=== PATIENT | male | born 1965 | race Caucasian/White ===

== ENCOUNTER → 2016-07-09 | Outpatient (CLI) | payer OTHER | END | disposition home or self-care (01) | LOC: PCVCIMAG 13:37 | PROVIDERS: ATTEND Internal Medicine Cardiovascular Disease | DX: E78.5 Hyperlipidemia, unspecified (principal); E78.00 Pure hypercholesterolemia, unspecified; R94.31 Abnormal electrocardiogram [ECG] [EKG]; R00.1 Bradycardia, unspecified | CPT/HCPCS: 80061; 93325; 93351; G0463 ==

== ENCOUNTER → 2019-02-13 | Outpatient (CLI) | payer OTHER ==
--- NOTE | 2019-02-17 16:33 | PCVCIMAG ---
APPROVED REPORT Study performed: 02/13/2019 12:39:06 Exam: Stress Echocardiogram Indication: elevated coronary calcium score, abn ekg, dyspnea Patient Location: Echo lab Stress Nurse: Aisha Arambula RN Status: routine Ht: 6 ft 0 in HR: 68 bpm BP: 126/84 mmHg Rhythm: NSR w/ 1st degree AV block Procedure The patient underwent an Exercise Stress Test using the Tyshawn Protocol. Blood pressure, heart rate, and EKG were monitored. An Echocardiogram was performed by liquified natural gas technician in four stages in quad fashion. At peak stress, four selected images were obtained and placed side by side with resting images for comparison. Stress Test Details Stress Test: Exercise stress testing was performed using a Tyshawn protocol. HR Resting HR: 70 bpmMax Heart Rate (APMHR): 165 bpm Max HR Achieved: 155 bpmTarget HR (85% APMHR): 140 bpm % of APMHR: 93 Recovery HR: 73 bpm HR response to stress: Normal HR response to stress BP Resting BP: 126/84 mmHg Max BP: 176/80 mmHg Recovery BP: 142/80 mmHg BP response to stress: Normal blood pressure response to stress. ECG Resting ECG: Sinus Rhythm, LVH with repolarization changes, 1st degree AV block Stress ECG: Sinus Rhythm ST Change: lateral and inferior ST depression Maximum ST Deviation: -3.05 mm Arrhythmia: None Recovery ECG: Sinus Rhythm Recovery ST Change: Lateral and inferior ST changes that resolved within 50 seconds of recovery [address] Deviation: .6 mm Recovery Arrhythmia: 2nd Degree AV block (Wenkebach) that resolved to NSR Clinical Reason for Termination: Maximal effort Stress Symptoms: Dyspnea Exercise duration: 13 min 3 sec Highest Stage Achieved: Stage 5: 5.0 mph at 18% grade. Exercise capacity: 17.2 METs Overall Exercise Capacity for Age: Excellent Scale: Active Angina Score: None Stress ECG Conclusion [place] Treadmill Score is 28.3 which is Low risk. Pre-Stress Echo The resting Echocardiogram showed normal left ventricular contractility with an estimated Ejection Fraction of about >55%. The resting echocardiogram demonstrated normal wall motion in all wall segments. Post-Stress Echo The stress Echocardiogram showed normal left ventricular contractility with an estimated Ejection Fraction of about 65%. Compared to rest, there were no stress-induced wall motion abnormalities. Clinical No clinical or ECG evidence for ischemia. Conclusion Clinical Response: Non-ischemic Exercise Capacity: Superior Stress ECG Response: Equivocal Stress Echo Images: Non-ischemic The left ventricle is normal in size and mild LVH in both the rest and stress images. Mild mitral regurgitation. Trace aortic insufficiency without stenosis. Mild pulmonic regurgitation. Trace triscupid regurgitation with PAP of 33 mmHg. Other Information Study Quality: Adequate <Conclusion> The left ventricle is normal in size and mild LVH in both the rest and stress images. Mild mitral regurgitation. Trace aortic insufficiency without stenosis. Mild pulmonic regurgitation. Trace triscupid regurgitation with PAP of 33 mmHg.
== END | disposition home or self-care (01) ==
LOC: PCVCIMAG 12:46
PROVIDERS: ATTEND Internal Medicine Cardiovascular Disease
DX: I08.8 Other rheumatic multiple valve diseases (principal); R93.1 Abnormal findings on diagnostic imaging of heart and coronary circulation; R94.31 Abnormal electrocardiogram [ECG] [EKG]; R06.00 Dyspnea, unspecified
CPT/HCPCS: 93325; 93351